=== PATIENT | male | born 1990 | race Caucasian/White ===

== ENCOUNTER 2018-07-18 06:24 | Day surgery (SDC) | payer BC ==
[~2018-07-18 06:24] MED LIST: BUPIVACAINE 0.5% (SDV) 30 ML, morphine SULFATE (PF) 8 MG, EPINEPHrine 0.3 MG, KETOROLAC... IRR; DEXAMETHASONE 1 MG TAB PO
[2018-07-18] MEDS ORDERED: PROPOFOL 200 MG INJ (07:00)
[2018-07-18] MEDS: GABAPENTIN 300 MG CAP PO (07:18)
[2018-07-18] MEDS: DEXAMETHASONE 1 MG TAB PO (07:18)
[2018-07-18] MEDS ORDERED: CEFAZOLIN 1 GM INJ ×2 (08:29→10:43)
[2018-07-18] MEDS ORDERED: FENTAnyl 50 MCG/ML VIAL (08:29)
[2018-07-18] MEDS ORDERED: PROPOFOL 20 ML (08:29)
[2018-07-18] MEDS ORDERED: MIDAZOLAM 1 MG/ML 2 ML INJ (08:29)
[2018-07-18] MEDS ORDERED: BUPIVACAINE 0.5%/EPI (SDV) 30 ML INJ (09:46)
[2018-07-18] MEDS ORDERED: DEXAMETHASONE 4 MG/ML 1 ML INJ (10:43)
[2018-07-18] MEDS ORDERED: ONDANSETRON 4 MG INJ (10:43)
[2018-07-18] MEDS ORDERED: METOCLOPRAMIDE 10 MG INJ (10:43)
[2018-07-18] MEDS ORDERED: KETOROLAC 30 MG INJ (10:43)
[2018-07-18] MEDS ORDERED: SUGAMMADEX SODIUM 200 MG/2 ML VIAL IV (10:54)
[2018-07-18] MEDS ORDERED: hydrALAzine 20 MG INJ IV (11:00)
[2018-07-18] MEDS ORDERED: HYDROmorphONE 1 MG/5 ML IV SYRINGE IV ×2 (11:00)
[2018-07-18] MEDS ORDERED: METOCLOPRAMIDE 10 MG INJ IV (11:00)
[2018-07-18] MEDS ORDERED: FENTAnyl 50 MCG/ML VIAL IV ×3 (11:00)
[2018-07-18] MEDS ORDERED: DIPHENHYDRAMINE 50 MG INJ IV (11:00)
[2018-07-18] MEDS ORDERED: ONDANSETRON 4 MG INJ IV (11:00)
[2018-07-18] MEDS ORDERED: OXYCODONE/ACETAMINOPHEN (5/325) TAB PO (11:00)
[2018-07-18] MEDS ORDERED: EPHEDrine SULFATE 50 MG/5 ML SYG IV (11:00)
[2018-07-18] MEDS ORDERED: MEPERIDINE 25 MG INJ IV (11:00)
[2018-07-18] MEDS ORDERED: LABETALOL HCL 20MG INJ IV (11:00)
[2018-07-18] MEDS: HYDROmorphONE 1 MG/5 ML IV SYRINGE IV (11:50)
[2018-07-18] MEDS: TRANEXAMIC ACID 1,000 MG in DEXTROSE 5% 100 ML IVPB (11:50)
[2018-07-18] MEDS: BUPIVACAINE 0.5% (SDV) 30 ML, morphine SULFATE (PF) 8 MG, EPINEPHrine 0.3 MG, KETOROLAC... IRR (12:14)
== END 2018-07-18 12:39 | disposition home or self-care (01) ==
LOC: SDS 06:24
DX: T84.84XD Pain due to internal orthopedic prosthetic devices, implants and grafts, subsequent encounter (principal); Y83.8 Other surgical procedures as the cause of abnormal reaction of the patient, or of later complication, without mention of misadventure at the time of the procedure; M23.200 Derangement of unspecified lateral meniscus due to old tear or injury, right knee
CPT/HCPCS: 20680; 88300